=== PATIENT | male | born 1990 | race Caucasian/White ===

== ENCOUNTER 2017-10-22 23:53 | Emergency (ER) | payer OTHER ==
[~2017-10-22] VITALS: Ht 177.8 cm; Wt 75.0 kg
[2017-10-22 23:53] VITALS: BP 132/84
[2017-10-22] MEDS ORDERED: LIDOCAINE-MPF 1%, 5ML ONE (23:55)
[2017-10-23] MEDS ORDERED: LIDOCAINE-MPF 1%, 5ML INFIL ONE
[2017-10-23] MEDS ORDERED: DIPH,PERTUSS(ACELL),TET VAC/PF 0.5 ML IM-VACC ONE ×2 (00:30→01:19)
[2017-10-23] MEDS ORDERED: PLEASE ENTER ALLERGIES MC SCH (01:30)
== END 2017-10-23 03:07 | disposition home or self-care (01) ==
LOC: ED 23:59
DX: S01.81XA Laceration without foreign body of other part of head, initial encounter (principal); F10.120 Alcohol abuse with intoxication, uncomplicated; W19.XXXA Unspecified fall, initial encounter; Y93.89 Activity, other specified; Y92.009 Unspecified place in unspecified non-institutional (private) residence as the place of occurrence of the external cause; Y99.8 Other external cause status
CPT/HCPCS: 12011; 12051; 70450; 90471; 90715

== ENCOUNTER 2017-10-29 14:14 | Emergency (ER) | payer OTHER ==
[~2017-10-29] VITALS: Ht 177.8 cm; Wt 68.0 kg
[2017-10-29 14:18] VITALS: BP 122/82
== END 2017-10-29 15:09 | disposition home or self-care (01) ==
LOC: ED 14:50
DX: S01.91XD Laceration without foreign body of unspecified part of head, subsequent encounter (principal); X58.XXXD Exposure to other specified factors, subsequent encounter
CPT/HCPCS: 99281